=== PATIENT | female | born 1995 | race Caucasian/White ===

== ENCOUNTER 2019-07-10 13:15 | Emergency (ER) | payer OTHER, SELFPAY ==
[2019-07-10 13:18] VITALS: BP 114/66; PULSE 64; RESP 15; TEMP 36.9; O2SAT 100; BMI 22.6
--- NOTE | 2019-07-10 15:02 | DI.US.S_ITS ---
PROCEDURE: US OB <= 14 WEEKS FETUS INDICATIONS: + PREG, VAG BLEEDING, R/O DEMISE/RPOC OUTSIDE/PRIOR DATING DATA: Last menstrual period (LMP): 05/05/19. LMP-based estimated date of delivery (TORREY): 02/09/20. First dating scan (date and location): 07/10/19. Estimated date of delivery (TORREY) from first dating scan: 02/29/20. TECHNIQUE: Real-time scanning was performed of the fetus and maternal pelvic organs, with image documentation. Endovaginal scanning was also performed to better visualize the fetus and maternal ovaries. COMPARISON: None. FINDINGS: Embryo: A single intrauterine gestational sac is identified with a mean gestational sac diameter of 1.9 cm, correlating with an estimated gestational age of 6 weeks 6 days. The crown-rump length is well-visualized that measures 4 mm in length, correlating with an estimated gestational age of 6 weeks 1 day. A prominent yolk sac is present measuring up to 1 cm. cardiac motion was not able to be detected. No definite subchorionic hemorrhage is appreciated. Maternal organs: Ovaries are not enlarged. Limited images through the kidneys demonstrate no hydronephrosis. IMPRESSION: 1. Single intrauterine at at least 6 weeks 1 day (TORREY 02/29/20) is discordant with the clinical dates by approximately 3-4 weeks. 2. cardiac motion was unable to be detected, which is unusual by endovaginal imaging at this age, suspicious for embryonic demise. Correlation with serial beta-hCG levels is recommended. Followup imaging in one week would be helpful to reevaluate for cardiac motion. 2. Enlarged yolk sac. Dictated by: Trevin Stevenson M.D. on 07/10/2019 at 16:05 Approved by: Trevin Stevenson M.D. on 07/10/2019 at 16:08
--- NOTE | 2019-07-10 15:05 | ED_ITS ---
HPI - <TREVON Lucio - Last Filed: 07/10/19 21:53> General Chief complaint: OB/Uterine Contractions Stated complaint: possible miscarriage Time Seen by Provider: 07/10/19 14:29 Source: patient Mode of arrival: Ambulatory Limitations: no limitations History of Present Illness HPI Narrative: 24yo female presents to the emergency department for increased bleeding uterine cramping, and passage of clots that worsened today. She states she was seen 4 days ago the [facility] and was diagnosed with an impending miscarriage for which she presented to receive care for vaginal bleeding. Patient had ultrasound that identified no heart rate at 6 weeks 1day. Patient states she had continued bleeding after the ultrasound but reports that has significantly increased today. She reports increased cramping at a 8/10 with a reduction in pain after ibuprofen. She denies any other symptoms such as dysuria, dizziness, nausea, vomiting, diarrhea, chest pain, shortness of breath, or other concerns. Patient : Yes Related Data Allergies Allergy/AdvReac Type Severity Reaction Status Date / Time No Known Drug Allergies Allergy Verified 07/10/19 13:18 Review of Systems <TREVON Lucio - Last Filed: 07/10/19 21:53> Review of Systems Narrative: REVIEW OF SYSTEMS: GENERAL: Denies fever, chills, malaise, or wt. loss. HENT: No head trauma, sore throat, or dysphagia. EYES: No loss of vision, double vision, eye pain, or irritation. CARDIOVASCULAR: No chest pain, palpitations, or orthopnea. RESPIRATORY: No shortness of breath or cough. GASTROINTESTINAL: Denies abdominal pain. GENITOURINARY: Reports vaginal bleeding and lower pelvic cramping, see HPI. MUSCULOSKELETAL: No pain, weakness, or trauma. INTEGUMENTARY: No rash, lesions, or pruritus. NEURO: No numbness, tingling, memory loss, confusion, or headaches. PSYCH: No behavior or mood changes. PMFSH - <TREVON Lucio - Last Filed: 07/10/19 21:53> Past Medical History Medical history: Reports no medical history Patient : Yes Family History Family history: Reports no significant family history Exam <TREVON Lucio - Last Filed: 07/10/19 21:53> Initial Vital Signs Initial Vital Signs: Vital Signs Temperature 98.4 F 07/10/19 13:18 Pulse Rate 64 07/10/19 13:18 Respiratory Rate 15 07/10/19 13:18 Blood Pressure 114/66 07/10/19 13:18 Pulse Oximetry 100 07/10/19 13:18 PHYSICAL EXAMINATION: GENERAL: Well groomed, alert, and cooperative. Answers questions promptly and appropriately. Vital signs noted. HENT: Normocephalic, atraumatic. Hearing intact. Oral mucosa is pink and moist. EYES: Conjunctiva pink, sclera white, no periorbital swelling. CARDIOVASCULAR: S1 and S2 sounds normal. Regular rate and rhythm, no murmurs, clicks, or bruits. No pedal edema. RESPIRATORY: Normal respiratory rate, trachea midline, airway patent. No stridor, nasal flaring or accessory muscle use. Lungs are clear in all vill[place] without wheeze, rhonchi, or crackles. GASTROINTESTINAL: Bowel sounds normoactive. Abdomen is soft and [non-tender]. No organomegaly, no palpable masses. GENITALURINARY: No flank tenderness. MUSCULOSKELETAL: Normal gait and coordination. Equal tone and mass bilaterally. EXTREMITIES: CMS intact, no pedal edema. SKIN: Warm, dry, soft, appropriate color for ethnicity. No lesions, rashes, or wounds to visualized areas. NEURO: Alert and Oriented X 3. Good coordination. No ataxia, or sensory deficits, or cognitive issues. PSYCH: Appropriate affect and mood. <Desmond Pedersen MD - Last Filed: 07/11/19 07:44> Initial Vital Signs Initial Vital Signs: Vital Signs Temperature 98.4 F 07/10/19 13:18 Pulse Rate 64 07/10/19 13:18 Respiratory Rate 15 07/10/19 13:18 Blood Pressure 114/66 07/10/19 13:18 Pulse Oximetry 100 07/10/19 13:18 Course <TREVON Lucio - Last Filed: 07/10/19 21:53> Course Course Narrative: Patient had record with her from 07/07/2019: RBC: 4.39 HGB: 13.2 HCT: 38.5 BHC,260 Type and cross: O+ OB ultrasound Report: pole measures 4.8 mm, without heart rate. Follow-up was required to determine viability. demise is not excluded. Orders Ordered: Discontinued Medications Ketorolac Tromethamine (Toradol) 30 mg IM NOW ONE Stop: 07/10/19 15:07 Last Admin: 07/10/19 15:21 Dose: 30 mg Documented by: SHAGGY Consultations Consultation #1: Patient staffed with Dr. Pedersen Vital Signs Vital signs: Vital Signs - 8 hr 07/10/19 16:23 Pulse Rate 67 Respiratory Rate 18 Blood Pressure [Right Arm] 111/57 L Pulse Oximetry 100 <Desmond Pedersen MD - Last Filed: 07/11/19 07:44> Orders Ordered: Discontinued Medications Ketorolac Tromethamine (Toradol) 30 mg IM NOW ONE Stop: 07/10/19 15:07 Last Admin: 07/10/19 15:21 Dose: 30 mg Documented by: SHAGGY Vital Signs Vital signs: Vital Signs - 8 hr 07/10/19 16:23 Pulse Rate 67 Respiratory Rate 18 Blood Pressure [Right Arm] 111/57 L Pulse Oximetry 100 MDM - OB/Uterine Contractions <TREVON Lucio - Last Filed: 07/10/19 21:53> Medical Records Attestation: I reviewed the patient's medical records. Lab Data Attestation: I reviewed the patient's lab results. Result diagrams: 07/10/19 16:07 Labs: Lab Results 07/10/19 07/10/19 Range/Units 16:07 16:07 WBC 6.8 (4.5-11.0) X10^3/uL RBC 4.16 (4.0-5.2) X10^6/uL Hgb 12.3 (12.0-16.0) g/dL Hct 36.4 (36-46) % MCV 87.3 (80-100) fL MCH 29.6 (26-34) PG MCHC 33.9 (30-36) % RDW 12.2 (11.6-14.8) % Plt Count 280 (150-400) X10^3/uL Neut % (Auto) 65.3 (50-75) % Lymph % (Auto) 25.9 (25-40) % [place] % (Auto) 6.1 (3-14) % Eos % (Auto) 2.1 (2-4) % Baso % (Auto) 0.6 (0-2) % Neut # (Auto) 4500 (5712-5171) /uL Lymph # (Auto) 1800 (1885-3772) /uL [place] # (Auto) 400 (0-900) /uL Eos # (Auto) 100 (0-450) /uL Baso # (Auto) 0 (0-100) /uL HCG, Quant 20697 mIU/mL Imaging Data US - OB: Radiologist's Impression: [address] [address] Ultrasound Report Signed Patient: Juana Quesada EMR#: [id number] : 1995Acct:[id number] Age/Sex: 24 / FDate of Service: 07/10/19 Loc: ED Accession Number: [id number] Procedure: US OB <= 14 weeks fetus Ordering Provider: Lauren Ca PROCEDURE: US OB <= 14 WEEKS FETUS INDICATIONS: + PREG, VAG BLEEDING, R/O DEMISE/RPOC OUTSIDE/PRIOR DATING DATA: Last menstrual period (LMP): 05/05/19. LMP-based estimated date of delivery (TORREY): 02/09/20. First dating scan (date and location): 07/10/19. Estimated date of delivery (TORREY) from first dating scan: 02/29/20. TECHNIQUE: Real-time scanning was performed of the fetus and maternal pelvic organs, with image documentation. Endovaginal scanning was also performed to better visualize the fetus and maternal ovaries. COMPARISON: None. FINDINGS: Embryo: A single intrauterine gestational sac is identified with a mean gestational sac diameter of 1.9 cm, correlating with an estimated gestational age of 6 weeks 6 days. The crown-rump length is well-visualized that measures 4 mm in length, correlating with an estimated gestational age of 6 weeks 1 day. A prominent yolk sac is present measuring up to 1 cm. cardiac motion was not able to be detected. No definite subchorionic hemorrhage is appreciated. Maternal organs: Ovaries are not enlarged. Limited images through the kidneys demonstrate no hydronephrosis. IMPRESSION: 1. Single intrauterine at at least 6 weeks 1 day (TORREY 02/29/20) is discordant with the clinical dates by approximately 3-4 weeks. 2. cardiac motion was unable to be detected, which is unusual by endov aginal imaging at this age, suspicious for embryonic demise. Correlation with serial beta-hCG levels is recommended. Followup imaging in one week would be helpful to reevaluate for cardiac motion. 2. Enlarged yolk sac. Dictated by: Trevin Stevenson M.D. on 07/10/2019 at 16:05 Approved by: Trevin Stevenson M.D. on 07/10/2019 at 16:08 [facility] Narrative Medical decision making narrative: 24-year-old female with a history of impending miscarriage presents emergency department for increased bleeding and clotting. Ultrasound shows no heart bee with a single intrauterine at approximately 6 weeks. Patient's hCG has declined, and patient's bleeding has increased. Suspect this is most likely due to spontaneous . Patient was encouraged to follow up with OB within the week to discuss further options on how to handle miscarriage and for continue monitoring. She was referred to Ob upon discharge. Less concern for acute blood loss due to hemoglobin, hematocrit, and red blood cells without much acute change. She remained hemodynamically stable throughout the emergency department stay. She agreed to plan of care verbalized understanding. Pain was controlled with Toradol. <Desmond Pedersen MD - Last Filed: 07/11/19 07:44> Lab Data Labs: Lab Results 07/10/19 07/10/19 Range/Units 16:07 16:07 WBC 6.8 (4.5-11.0) X10^3/uL RBC 4.16 (4.0-5.2) X10^6/uL Hgb 12.3 (12.0-16.0) g/dL Hct 36.4 (36-46) % MCV 87.3 (80-100) fL MCH 29.6 (26-34) PG MCHC 33.9 (30-36) % RDW 12.2 (11.6-14.8) % Plt Count 280 (150-400) X10^3/uL Neut % (Auto) 65.3 (50-75) % Lymph % (Auto) 25.9 (25-40) % [place] % (Auto) 6.1 (3-14) % Eos % (Auto) 2.1 (2-4) % Baso % (Auto) 0.6 (0-2) % Neut # (Auto) 4500 (1754-2615) /uL Lymph # (Auto) 1800 (6338-0180) /uL [place] # (Auto) 400 (0-900) /uL Eos # (Auto) 100 (0-450) /uL Baso # (Auto) 0 (0-100) /uL HCG, Quant 04584 mIU/mL Discharge Plan Departure Patient Disposition: Home Clinical Impression: Incomplete miscarriage Discharge Date/Time: 07/10/19 17:54 Instructions: DI for Miscarriage Activity Restrictions/Additional Instructions: Thank you for entrusting me with your care today. As discussed, your ultrasound shows that the embryo is still within the uterus, there is no heart beat, and your HCG ( hormone) is declining, this indicates that you are most likely having a miscarriage. I have referred to to an OB listed below, please give them a call and schedule a follow-up appointment. I recommend having a re- evaluation with possible ultrasound in 1 week. Return emergency department for any new or worsening symptoms such as dizziness, shortness of breath, severe cramping, profuse bleeding (saturating more than 1 pad or tampon an hour), syncope, or other concerns. Referrals: Kristen Pelaez MD [Physician] - (Miscarriage. )
[2019-07-10] MEDS: KETOROLAC 60 MG/2 ML VIAL 30 MG IM (15:21)
[2019-07-10 16:14] LABS: Add Manual Diff / Slide Review NO; Basophils Absolute Auto 0 /uL (0-100); Basophils Percent Auto 0.6 % (0-2); Eosinophils Absolute Auto 100 /uL (0-450); Eosinophils Percent Auto 2.1 % (2-4); Hematocrit 36.4 % (36-46); Hemoglobin 12.3 g/dL (12.0-16.0); Lymphocytes Absolute Auto 1800 /uL (1100-4500); Lymphocytes Percent Auto 25.9 % (25-40); Mean Corpuscular HGB Conc 33.9 % (30-36); Mean Corpuscular Hemoglobin 29.6 PG (26-34); Mean Corpuscular Volume 87.3 fL (80-100); Monocytes Absolute Auto 400 /uL (0-900); Monocytes Percent Auto 6.1 % (3-14); Neutrophils Absolute Auto 4500 /uL (1500-7000); Neutrophils Percent Auto 65.3 % (50-75); Platelet Count 280 X10^3/uL (150-400); Red Blood Cell Count 4.16 X10^6/uL (4.0-5.2); Red Cell Distribution Width 12.2 % (11.6-14.8); White Blood Cell Count 6.8 X10^3/uL (4.5-11.0)
--- NOTE | 2019-07-10 16:21 | PC.NURSE ---
pt reporst, had vaginal bleeding, 3 days ago, denies fever,nausea,vomiting. returned from u/s, report had a large vaginal clot, states,today changed pad twice. denies fever,nausea or vomiting. alert and awake, skin warm dry pink, nad pain free at this time, after toradol. waiting for u/s result.
[2019-07-10 16:23] VITALS: BP 111/57; PULSE 67; RESP 18; O2SAT 100
[2019-07-10 16:50] LABS: HCG Quantitative /Beta subunit 13596 mIU/mL
== END 2019-07-10 17:54 | disposition home or self-care (01) ==
PROVIDERS: Emergency Provider Nurse Practitioner
DX: O03.4 Incomplete spontaneous abortion without complication (principal)
CPT/HCPCS: 36415; 76801; 76830; 84702; 85025; 96372; 99284; J1885

== ENCOUNTER 2019-07-12 05:57 | Observation (INO) | payer OTHER, SELFPAY ==
[2019-07-12] VITALS (7 sets, daily range): BP systolic 102–130; BP diastolic 48–67; PULSE 63–88; RESP 11–20; TEMP 36.5–36.8; O2SAT 100
--- NOTE | 2019-07-12 | PATH_ITS ---
[facility] Accession Number: [id number] . 01 Material submitted: . uterus - UTERINE CONTENTS . 01 Clinical history: . MISCARRYING UNDER 20 WEEKS . 02 Diagnosis: Uterine Contents: Products of conception identified. V 07/15/2019 1231 Local . 02 Electronically signed: . Rufina Moore MD, Pathologist NPI- [id number] . 01 Gross description: . UTERINE CONTENTS: Received in formalin are multiple fragments of hemorrhagic spongy tissue measuring 6.0 x 4.0 x 1.2 cm in aggregate. parts are not identified. Specimen is submitted in toto in 7 cassettes. /[facility] 07/14/2019 1911 Local . 02 Pathologist provided ICD-10: O03.4 . 02 CPT . 347276 Performed at: 01 [facility] [address] [id number] MD Meir Young MD Phone: [phone] Performed at: 02 [facility] [place] [address] [place] [id number] MD Jessica Farooq MD Phone: [phone]
--- NOTE | 2019-07-12 06:17 | DI.US.S_ITS ---
PROCEDURE: US OB <= 14 WEEKS FETUS INDICATIONS: HEAVY BLEEDING OUTSIDE/PRIOR DATING DATA: Last menstrual period (LMP): 05/05/19. LMP-based estimated date of delivery (TORREY): 02/09/20. First dating scan (date and location): 07/10/19. Estimated date of delivery (TORREY) from first dating scan: 02/29/20. TECHNIQUE: Real-time scanning was performed of the fetus and maternal pelvic organs, with image documentation. Endovaginal scanning was also performed to better visualize the fetus and maternal ovaries. COMPARISON: None. FINDINGS: Embryo: An intrauterine gestational sac is seen. The previously seen pole is no longer seen. There is apparent hemorrhage seen within the previously seen yolk sac that measures 3 by 1 by 1.2 cm. The mean gestational sac diameter is 2.1 cm which corresponds to a gestational age of 7 weeks Measurement variability in dating: +/- 4 weeks by LMP, +/- 7 days by mean sac diameter (use before 6 weeks gestation if crown-rump length not able to be measured), +/- 5 days by crown-rump length (up to 8 weeks 6 days gestation), +/- 7 days by crown-rump length (up to 13 weeks 6 days gestation). Maternal organs: No adnexal masses are seen. The ovaries are not directly visualized. Limited images through the kidneys demonstrate no hydronephrosis. IMPRESSION: These imaging findings are most compatible with a spontaneous miscarriage in progress, with the previously seen pole no longer seen. Apparent hemorrhage can be seen within the gestational sac, replacing the yolk sac. Close clinical followup, with serial beta-hCG and serial ultrasound are recommended, as clinically appropriate. Dictated by: Reymundo Carbone M.D. on 07/12/2019 at 7:05 Approved by: Reymundo Carbone M.D. on 07/12/2019 at 7:09
[2019-07-12] MEDS: KETOROLAC 60 MG/2 ML VIAL 15 MG IV (06:25)
[2019-07-12 06:30] LABS: Hematocrit 34.7 % (36-46); Hemoglobin 11.9 g/dL (12.0-16.0)
--- NOTE | 2019-07-12 06:47 | ED_ITS ---
HPI - <Landen Sheppard DO - Last Filed: 07/13/19 05:53> General Chief complaint: OB/Uterine Contractions Stated complaint: miscarrying under 20 weeks Time Seen by Provider: 07/12/19 06:00 Source: patient Mode of arrival: Ambulatory Limitations: no limitations History of Present Illness HPI Narrative: 24-year-old female nonsmoker at 6 weeks has been having signs and symptoms consistent with threatened miscarriage for about the past 5 days. Her OB management had been in [place] where her and her were station. There evaluated for cramping and some bleeding at a [place] hospital on Sunday, she was found to have HCG of 23,000 and discussions were had regarding the possibility of threatened miscarriage. She then came to [place] and symptoms persisted, she was seen here on Sunday under similar circumstances, with persistent cramping and bleeding. Ultrasound noted IUP at 6 weeks 1 day with no obvious heart tones and discussion was had regarding demise. HCG was 13,000. She had elected to ?allow nature to take its course? but over the course of the night her cramps have become much more intense. She is saturating a pad every 3 hours or so. She denies any nausea or vomiting. She is not dizzy nor weak or lightheaded. She denies any fever or chills. Her last oral intake was about 5:00 a.m. Complaint: vaginal bleeding Onset (ago): hour(s) Pain Consistency: constant Location: pelvis Severity: severe Quality: Aching and Cramping Relieving factors: none Exacerbating factors: none Associated symptoms: denies other symptoms Related Data Previous Rx's Medication Instructions Recorded hydrocodone-acetaminophen 1 tab PO Q4-6H PRN #10 tab 07/12/19 Allergies Allergy/AdvReac Type Severity Reaction Status Date / Time No Known Drug Allergies Allergy Verified 07/10/19 13:18 Review of Systems <Landen Sheppard DO - Last Filed: 07/13/19 05:53> Constitutional Constitutional: Denies chills, Denies fatigue, Denies fever(s), Denies frequent falls, Denies lethargy and Denies weakness Eyes Eyes: Denies change in vision, Denies eye discharge, Denies irritation and Denies loss of vision ENT Ears, Nose, Mouth, and Throat: Denies change in voice, Denies dizziness, Denies neck pain, Denies sore throat and Denies throat swelling Cardiovascular Cardiovascular: Denies chest pain, Denies irregular heart rhythm, Denies light headedness, Denies palpitations, Denies dyspnea, Denies dyspnea on exertion and Denies orthopnea Respiratory Respiratory: Denies cough, Denies dyspnea, Denies dyspnea on exertion and Denies wheezing Gastrointestinal Gastrointestinal: Denies abdominal pain, Denies change in bowel habits, Denies diarrhea, Denies nausea and Denies vomiting Genitourinary Genitourinary: Reports abnormal vaginal bleeding, Denies hematuria, Reports pelvic pain, Denies flank pain, Denies urinary incontinence and Denies urinary urgency Musculoskeletal Musculoskeletal: Denies back pain, Denies muscle weakness, Denies neck pain, Denies numbness and Denies tingling Integumentary/Breasts Skin/Breast: Denies pruritus, Denies erythema, Denies rash and Denies wounds Neurologic Neurologic: Denies behavioral changes, Denies confusion, Denies dizziness, Denies frequent falls, Denies loss of vision, Denies numbness, Denies tingling and Denies weakness Psychiatric Psychiatric: Denies anxiety, Denies behavioral changes, Denies confusion, Denies depression, Denies homicidal ideation and Denies suicidal ideation Endocrine Endocrine: Denies fatigue, Denies flushing and Denies palpitations Hematologic/Lymphatic Hematologic/Lymphatic: Denies easy bruising Allergic/Immunologic Allergic/Immunologic: Denies urticaria, Denies throat swelling and Denies wheezing PMFSH - <Landen Sheppard, - Last Filed: 07/13/19 05:53> Past Medical History Medical history: Reports no medical history Family History Family history: Reports no significant family history Exam <Landen Sheppard, - Last Filed: 07/13/19 05:53> Narrative Exam Narrative: GEN: AOx3 and in mild distress EYES: Pupils are equal, round, and reactive to light and accommodation. Extr aoccular muscles are intact bilaterally. There is no subconjunctival hemorrhage or exudate. CHEST: Lungs are clear to auscultation bilaterally and free of wheezes, rales, or rhonchi. Heart rate is regular rhythm, there are no murmurs, clicks, rubs, or gallops. There is no chest wall tenderness. ABD: Abdomen is soft and mild lower abdominal tenderness. There is no guarding or rebound. Bowel sounds are normal in all 4 quadrants. There is no mass or organomegaly. EXT: Full painless ROM of all extremities with no loss of sensation or strength. SKIN: Warm, pink, and dry. No erythema or rash Initial Vital Signs Initial Vital Signs: Vital Signs Temperature 98.2 F 07/12/19 06:04 Pulse Rate 88 07/12/19 06:04 Respiratory Rate 07/12/19 06:04 Blood Pressure 130/60 07/12/19 06:04 Pulse Oximetry 100 07/12/19 06:04 <Desmond Pedersen MD - Last Filed: 07/13/19 23:21> Initial Vital Signs Initial Vital Signs: Vital Signs Temperature 98.2 F 07/12/19 06:04 Pulse Rate 88 07/12/19 06:04 Respiratory Rate 07/12/19 06:04 Blood Pressure 130/60 07/12/19 06:04 Pulse Oximetry 100 07/12/19 06:04 Course <Landen Sheppard DO - Last Filed: 07/13/19 05:53> Orders Ordered: Discontinued Medications Fentanyl (Sublimaze) 0 mcg IV Q5M PRN PRN Reason: Pain, Moderate (4-6) Last Admin: 07/12/19 09:38 Dose: 50 mcg Documented by: MAJOR Hydromorphone HCl (Dilaudid) 0 mg IV Q5MIN PRN PRN Reason: Pain, Mild (1-3) Lactated Ringer's (Lactated Ringers) 1,000 mls @ 100 mls/hr IV CONT LIZ Cefazolin Sodium/Dextrose (Ancef) 2 gm in 100 mls @ 200 mls/hr IV NOW ONE Stop: 07/12/19 08:39 Last Infusion: 07/12/19 09:20 Dose: 0 mls/hr Documented by: Admin: 07/12/19 09:02 Dose: 200 mls/hr Documented by: JAYSON Lactated Ringer's (Lactated Ringers) 1,000 mls @ 42 mls/hr IV CONT LIZ Last Infusion: 07/12/19 10:17 Dose: 0 mls/hr Documented by: Admin: 07/12/19 09:00 Dose: 42 mls/hr Documented by: MAJOR Ketorolac Tromethamine (Toradol) 15 mg IV NOW ONE Stop: 07/12/19 06:18 Last Admin: 07/12/19 06:25 Dose: 15 mg Documented by: JULIETA Ondansetron HCl (Zofran) 4 mg IV NOW PRN PRN Reason: Nausea And Vomiting Oxycodone/Acetaminophen (Percocet 5/325) 1 tab PO PACUNOW PRN PRN Reason: Mild or Moderate Pain Last Admin: 07/12/19 09:52 Dose: 1 tab Documented by: MAJOR Vital Signs Vital signs: Vital Signs - 8 hr 07/12/19 06:04 Temperature 98.2 F Pulse Rate 88 Respiratory Rate 20 Blood Pressure 130/60 Pulse Oximetry 100 <Desmond Pedersen MD - Last Filed: 07/13/19 23:21> Orders Ordered: Discontinued Medications Fentanyl (Sublimaze) 0 mcg IV Q5M PRN PRN Reason: Pain, Moderate (4-6) Last Admin: 07/12/19 09:38 Dose: 50 mcg Documented by: MAJOR Hydromorphone HCl (Dilaudid) 0 mg IV Q5MIN PRN PRN Reason: Pain, Mild (1-3) Lactated Ringer's (Lactated Ringers) 1,000 mls @ 100 mls/hr IV CONT LIZ Cefazolin Sodium/Dextrose (Ancef) 2 gm in 100 mls @ 200 mls/hr IV NOW ONE Stop: 07/12/19 08:39 Last Infusion: 07/12/19 09:20 Dose: 0 mls/hr Documented by: Admin: 07/12/19 09:02 Dose: 200 mls/hr Documented by: JAYSON Lactated Ringer's (Lactated Ringers) 1,000 mls @ 42 mls/hr IV CONT LIZ Last Infusion: 07/12/19 10:17 Dose: 0 mls/hr Documented by: Admin: 07/12/19 09:00 Dose: 42 mls/hr Documented by: MAJOR Ketorolac Tromethamine (Toradol) 15 mg IV NOW ONE Stop: 07/12/19 06:18 Last Admin: 07/12/19 06:25 Dose: 15 mg Documented by: JULIETA Ondansetron HCl (Zofran) 4 mg IV NOW PRN PRN Reason: Nausea And Vomiting Oxycodone/Acetaminophen (Percocet 5/325) 1 tab PO PACUNOW PRN PRN Reason: Mild or Moderate Pain Last Admin: 07/12/19 09:52 Dose: 1 tab Documented by: MAJOR Vital Signs Vital signs: Vital Signs - 8 hr 07/12/19 06:04 Temperature 98.2 F Pulse Rate 88 Respiratory Rate 20 Blood Pressure 130/60 Pulse Oximetry 100 MDM - OB/Uterine Contractions <Landen Sheppard DO - Last Filed: 07/13/19 05:53> Lab Data Result diagrams: 07/12/19 06:20 Labs: Lab Results 07/12/19 07/12/19 Range/Units 06:20 06:20 Hgb 11.9 L (12.0-16.0) g/dL Hct 34.7 L (36-46) % HCG, Quant 7532.1 mIU/mL Imaging Data US - abdomen: Radiologist's Impression: Chart Viewer Diagnostics DATE TYPE STATUS AUTHOR Hx 07/12/19 06:17 Reymundo Carbone 07/10/19 15:02 Trevin StevensonClare maynardheide Maher 24, F106/05/1994 [place] [id number] 1 58.513kg Search Chart No Data to Display ONSET 07/12/19 09:59 Clare Quesadaheide Maher 24 F 1995 [place] [address] Ultrasound Report Signed Patient: Juana Quesada EMR#: [id number] : 1995Acct:[id number] Age/Sex: 24 / FDate of Service: 07/12/19 Loc: [id number] Accession Number: [id number] Procedure: US OB <= 14 weeks fetus Ordering Provider: Landen Sheppard D.O. PROCEDURE: US OB <= 14 WEEKS FETUS INDICATIONS: HEAVY BLEEDING OUTSIDE/PRIOR DATING DATA: Last menstrual period (LMP): 05/05/19. LMP-based estimated date of delivery (TORREY): 02/09/20. First dating scan (date and location): 07/10/19. Estimated date of delivery (TORREY) from first dating scan: 02/29/20. TECHNIQUE: Real-time scanning was performed of the fetus and maternal pelvic organs, with image documentation. Endovaginal scanning was also performed to better visualize the fetus and maternal ovaries. COMPARISON: None. FINDINGS: Embryo: An intrauterine gestational sac is seen. The previously seen pole is no longer seen. There is apparent hemorrhage seen within the previously seen yolk sac that measures 3 by 1 by 1.2 cm. The mean gestational sac diameter is 2.1 cm which corresponds to a gestational age of 7 weeks Measurement variability in dating: +/- 4 weeks by LMP, +/- 7 days by mean sac diameter (use before 6 weeks gestation if crown-rump length not able to be measured), +/- 5 days by crown-rump length (up to 8 weeks 6 days gestation), +/- 7 days by crown-rump length (up to 13 weeks 6 days gestation). Maternal organs: No adnexal masses are seen. The ovaries are not directly visualized. Limited images through the kidneys demonstrate no hydronephrosis. IMPRESSION: These imaging findings are most compatible with a spontaneous miscarriage in progress, with the previously seen pole no longer seen. Apparent hemorrhage can be seen within the gestational sac, replacing the yolk sac. Close clinical followup, with serial beta-hCG and serial ultrasound are recommended, as clinically appropriate. Dictated by: Reymundo Carbone M.D. on 07/12/2019 at 7:05 Approved by: Reymundo Carbone M.D. on 07/12/2019 at 7:09 [facility] Narrative Medical decision making narrative: Patient states that she cannot handle dealing with this miscarriage on her own anymore and wishes for assistance from Ob and wants to do a D&C if they will take her. After placing a call to Dr. Gonzalez she is happy to come and visit the patient at the bedside for likely D&C <Desmond Pedersen MD - Last Filed: 07/13/19 23:21> Lab Data Labs: Lab Results 07/12/19 07/12/19 Range/Units 06:20 06:20 Hgb 11.9 L (12.0-16.0) g/dL Hct 34.7 L (36-46) % HCG, Quant 7532.1 mIU/mL Discharge Plan Departure Patient Disposition: Admitted as Observation Clinical Impression: Incomplete miscarriage Discharge Date/Time: 07/12/19 08:45 Referrals: Padma Gonzalez MD [Physician] - 2 Weeks Admit Date/Time: 07/12/19 07:57 Admit Provider: Padma Gonzalez
[2019-07-12 06:55] LABS: HCG Quantitative /Beta subunit 7532.1 mIU/mL
--- NOTE | 2019-07-12 08:02 | P.HPOB_ITS ---
History of Present Illness History of Present Illness Reason for admission: incomplete Narrative: Juana Quesada is a 24 year old female with incomplete requesting D&C [facility] Surgical History (Updated 07/12/19 @ 08:03 by Padma Gonzalez MD) [place] teeth removed (Acute) Social History Smoking Status: Unknown if ever smoked Meds Home Medications and Allergies Allergies Allergy/AdvReac Type Severity Reaction Status Date / Time No Known Drug Allergies Allergy Verified 07/10/19 13:18 Review of Systems Review of Systems Narrative: Patient denies fevers. She began bleeding 4 days ago. She has con tinued to have cramping and bleeding. She has been having some increasing abdominal pain. No nausea or vomiting. ROS: Yes All systems reviewed with the patient and are negative except as otherwise documented Exam Vital Signs (past 8 hours): - 07/12/19 06:04 07/12/19 07:32 Temperature 98.2 F Pulse Rate 88 65 Respiratory Rate 20 18 Blood Pressure 130/60 Blood Pressure [Right Arm] 106/54 L Pulse Oximetry 100 100 Oxygen Delivery Method Room Air Narrative Exam Narrative: Patient's HEENT exam within normal limits. Lungs are clear to auscultation percussion. No thyromegaly. Heart is regular rate and rhythm no S3-S4 or murmurs. Abdomen is soft with mild diffuse tenderness but no rebound. Pelvic exam was not repeated. Extremities without edema and nontender. In reviewing ultrasound performed today there is still a nonviable gestation in the uterus. Objective Labs Result Diagrams: 07/12/19 06:20 Labs: Laboratory Results - last 24 hr 07/12/19 07/12/19 06:20 06:20 Hgb 11.9 L Hct 34.7 L HCG, Quant 7532.1 Assessment & Plan Assessment and plan (1) Incomplete miscarriage: Current visit: Yes Status: Acute Assessment & Plan narrative: Incomplete miscarriage at 6 weeks with patient requesting D&C. Consent form was reviewed with the patient and signed. Ques tions answered. Risk of infection, perforation of the uterus that could require additional surgery or opening the abdomen to repair damage to bowel, bladder, ureters. Risk of bleeding to enough to require transfusion. Incomplete removal of all tissue that could require further surgery in the future. Risk of scar tissue in the uterus that could cause problems with infertility or at require additional surgery Time Spent With Patient Time with patient: 15-24 minutes
--- NOTE | 2019-07-12 08:02 | PM.PREOP ---
Pre-operative Note Interval Note History & Physical reviewed/Exam performed by Physician: Yes Changes to H&P: No
[2019-07-12] MEDS: LACTATED RINGERS 1,000 ML 42 ML IV (09:00)
[2019-07-12] MEDS: CEFAZOLIN 2 GM/100 ML FROZ.PIGGY IV (09:02)
--- NOTE | 2019-07-12 09:17 | SUR.OPER ---
Lithotomy on padded OR bed, head on pillow, arms secured on padded arm boards at <90 degrees abduction. Legs secured in padded yellow fins stirrups.
--- NOTE | 2019-07-12 09:25 | PM.OP.1 ---
Operative Date/Time/Diagnoses Date of procedure: 07/12/19 Time of procedure: 09:26 Pre-op diagnosis: Missed AB Post-op diagnosis: same Procedure & Clinicians Procedure: Suction D&C Same procedure as scheduled: Yes Indications: Incomplete miscarriage at 6 weeks Surgeon: Padma Gonzalez Click Yes if Unassisted: Yes Anesthesia Type: General Operative Notes Closure Type: not applicable Specimen(s): other (Uterine contents) Estimated Blood Loss (mL): 20 Blood products transfused: none Procedure in detail: Patient was brought to the operating room where she underwent general anesthesia. She was placed in low Yellofin stirrups and prepped and draped in the usual sterile fashion. 2 g of Ancef were in prior to beginning of the case. A check system was reviewed with the staff in the room. A single-tooth tenacula was placed on the anterior lip of the cervix and the cervix was dilated to a #8 Hegar dilator. The #7 suction curette was placed to the fundus and a moderate amount of tissue removed. A sharp Curet was placed and curettage if performed to make sure that all tissue was removed. The suction catheter was replaced to remove the remaining tissue. Patient went to recovery room in good condition. Counts of instruments and sponges were correct. Complications: none Post-operative Condition: stable Disposition: same day surgery Plan for aftercare: Home when awake and stable
[2019-07-12] MEDS: fentaNYL 100 MCG/2 ML INJ IV (09:38)
[2019-07-12] MEDS: OXYCODONE/ACETAMINOPHEN 5/325 TABLET 1 TAB PO (09:52)
--- NOTE | 2019-07-12 10:02 | SUR.PHASEI ---
oakes ring with white stones, necklace, nose stud and multiple earring studs in place.
== END 2019-07-12 10:05 | disposition home or self-care (01) ==
LOC: ED 07:24 → AC 07:59
PROVIDERS: Admitting Provider Specialist; Emergency Provider Emergency Medicine; Referring Provider Emergency Medicine; Visit Provider Specialist
PROC: (CPT 58120; principal; 2019-07-12 08:50)
DX: O02.1 Missed abortion (principal); Z3A.01 Less than 8 weeks gestation of pregnancy
CPT/HCPCS: 59820; 36415; 76801; 76817; 84702; 85014; 85018; 96361; 96374; 96375; 99284; G0378; J0690; J1100; J1885; J2250; J2405; J2704; J3010

== ENCOUNTER 2019-10-09 19:50 | Emergency (ER) | payer OTHER, SELFPAY ==
[2019-10-09 19:59] VITALS: BP 129/68; PULSE 79; RESP 15; TEMP 36.8; O2SAT 99; BMI 22.1
--- NOTE | 2019-10-09 20:00 | ED_ITS ---
HPI - Female Genitourinary General Chief complaint: OB/Uterine Contractions Stated complaint: thinks having a miscarriage Time Seen by Provider: 10/09/19 20:00 History of Present Illness HPI Narrative: 24-year-old , O+, at 9 weeks 1 day by ultrasound 2 weeks ago. Presents with bleeding that started at 3:00 p.m. this afternoon. Was initially significant cramping than brown spotting than more cramping and eventually bright red bleeding without significant clotting. She describes no fevers, no dysuria, no abdominal pain beyond the pelvic cramping, no diarrhea, no cough, no chest pain, no shortness of breath. Presented to this emergency department July 10 with a 6 week spontaneous miscarriage that required D&C at that time. Related Data Previous Rx's Medication Instructions Recorded hydrocodone-acetaminophen 1 tab PO Q4-6H PRN #10 tab 07/12/19 Allergies Allergy/AdvReac Type Severity Reaction Status Date / Time No Known Drug Allergies Allergy Verified 07/10/19 13:18 Review of Systems Review of Systems Narrative: Pertinent positive and negative findings as per HPI Remainder of review of systems is otherwise unremarkable for Constitutional: Fevers, chills, weakness ENT: No sore throat, neck pain, ear pain CV: Chest pain, palpitations, dyspnea on exertion Respiratory: Cough, wheeze, dyspnea GI: Nausea, vomiting, diarrhea, change in bowel habits, black or bloody stools : Dysuria, hematuria, flank pain MS: Muscle weakness, numbness, joint swelling or warmth Skin: Rashes, nonhealing lesions Neuro: Syncope, dizziness, tingling Patient History Medical History (Updated 10/09/19 @ 21:35 by Fay Valderrama MD) Incomplete miscarriage (Acute) Surgical History (Updated 07/12/19 @ 08:03 by Padma Gonzalez MD) [place] teeth removed (Acute) alcohol intake frequency: holidays/special occasions only Substance Use Type: does not use Exam Narrative Exam Narrative: General: Alert appropriate in no acute distress Respiratory: Able to speak in full sentences, no obvious respiratory distress Skin: No obvious rashes, warm and dry Neurologic: Grossly intact no obvious asymmetries or abnormalities Psych, appropriate insight and affect, cooperative Pelvic: Long closed uterus with some mucousy discharge from the os. Brownish discharge in the vaginal vault no bright red blood Bedside ultrasound: Slightly deformed gestational sac with yolk sac visible but no clear pole. Gestational sac is measuring approximately 7 weeks 1 day Initial Vital Signs Initial Vital Signs: Vital Signs Temperature 98.2 F 10/09/19 19:59 Pulse Rate 79 10/09/19 19:59 Respiratory Rate 15 10/09/19 19:59 Blood Pressure 129/68 10/09/19 19:59 Pulse Oximetry 99 10/09/19 19:59 Course Orders Ordered: ED Orders 10/09/19 20:30 Complete Blood Count AUTO DIFF Stat Comprehensive Metabolic Panel Stat HCG Quantitative /Beta subunit Stat Test Serum,Qual Stat Discontinued Medications Sodium Chloride (Normal Saline 0.9%) 1,000 mls @ 1,000 mls/hr IV BOLUS ONE Stop: 10/09/19 21:28 Last Infusion: 10/09/19 22:13 Dose: 0 mls/hr Documented by: Admin: 10/09/19 20:42 Dose: 1,000 mls/hr Documented by: JULIETA Ketorolac Tromethamine (Toradol) 15 mg IV NOW ONE Stop: 10/09/19 20:30 Last Admin: 10/09/19 20:41 Dose: 15 mg Documented by: JULIETA Oxycodone/Acetaminophen (Percocet 5/325) 1 tab PO NOW ONE Stop: 10/09/19 21:45 Last Admin: 10/09/19 21:49 Dose: 1 tab Documented by: JULIETA Oxycodone/Acetaminophen (Endocet 5/325 Prepack) 1 bottle MISC SEEINSTR ONE Stop: 10/09/19 21:45 Last Admin: 10/09/19 21:49 Dose: 1 bottle Documented by: JULIETA Vital Signs Vital signs: Vital Signs - 8 hr 10/09/19 19:59 Temperature 98.2 F Pulse Rate 79 Respiratory Rate 15 Blood Pressure 129/68 Pulse Oximetry 99 MDM - Female Genitourinary Medical Records Attestation: I reviewed the patient's medical records. Lab Data Attestation: I reviewed the patient's lab results. Lab results narrative: quant [id number] Result diagrams: 10/09/19 20:30 10/09/19 20:30 Labs: Lab Results 10/09/19 10/09/19 10/09/19 Range/Units 20:30 20:30 20:30 WBC 7.3 (4.5-11.0) X10^3/uL RBC 4.25 (4.0-5.2) X10^6/uL Hgb 12.6 (12.0-16.0) g/dL Hct 36.3 (36-46) % MCV 85.4 (80-100) fL MCH 29.7 (26-34) PG MCHC 34.8 (30-36) % RDW 12.0 (11.6-14.8) % Plt Count 277 (150-400) X10^3/uL Neut % (Auto) 59.0 (50-75) % Lymph % (Auto) 31.1 (25-40) % Butts % (Auto) 6.3 (3-14) % Eos % (Auto) 2.6 (2-4) % Baso % (Auto) 1.0 (0-2) % Neut # (Auto) 4300 (6920-0534) /uL Lymph # (Auto) 2300 (5569-7597) /uL Butts # (Auto) 500 (0-900) /uL Eos # (Auto) 200 (0-450) /uL Baso # (Auto) 100 (0-100) /uL Sodium 136 L (137-145) mmol/L Potassium 4.1 (3.4-5.1) mmol/L Chloride 106 (98-107) mmol/L Carbon Dioxide 23 (22-32) mmol/L BUN 20 H (7-17) mg/dL Creatinine 0.72 (0.52-1.04) mg/dL Estimated GFR > 60.0 (>60) mL/min BUN/Creatinine Ratio 27.8 H (6-22) Glucose 98 (70-100) mg/dL Calcium 9.6 (8.4-10.2) mg/dL Total Bilirubin 0.2 (0.2-1.3) mg/dL AST 25 (14-36) IU/L ALT 16 (<35) IU/L Alkaline Phosphatase 55 (38-126) U/L Total Protein 7.3 (6.3-8.2) g/dL Albumin 4.3 (3.5-5.0) g/dL Globulin 3.0 (1.7-4.1) g/dL Albumin/Globulin Ratio 1.4 (1.0-2.8) HCG, Quant mIU/mL Serum , Qual Positive H (Negative) 10/09/19 Range/Units 20:30 WBC (4.5-11.0) X10^3/uL RBC (4.0-5.2) X10^6/uL Hgb (12.0-16.0) g/dL Hct (36-46) % MCV (80-100) fL MCH (26-34) PG MCHC (30-36) % RDW (11.6-14.8) % Plt Count (150-400) X10^3/uL Neut % (Auto) (50-75) % Lymph % (Auto) (25-40) % Butts % (Auto) (3-14) % Eos % (Auto) (2-4) % Baso % (Auto) (0-2) % Neut # (Auto) (3498-9402) /uL Lymph # (Auto) (9146-9016) /uL Butts # (Auto) (0-900) /uL Eos # (Auto) (0-450) /uL Baso # (Auto) (0-100) /uL Sodium (137-145) mmol/L Potassium (3.4-5.1) mmol/L Chloride (98-107) mmol/L Carbon Dioxide (22-32) mmol/L BUN (7-17) mg/dL Creatinine (0.52-1.04) mg/dL Estimated GFR (>60) mL/min BUN/Creatinine Ratio (6-22) Glucose (70-100) mg/dL Calcium (8.4-10.2) mg/dL Total Bilirubin (0.2-1.3) mg/dL AST (14-36) IU/L ALT (<35) IU/L Alkaline Phosphatase (38-126) U/L Total Protein (6.3-8.2) g/dL Albumin (3.5-5.0) g/dL Globulin (1.7-4.1) g/dL Albumin/Globulin Ratio (1.0-2.8) HCG, Quant 19259 mIU/mL Serum , Qual (Negative) [facility] Narrative Medical decision making narrative: 24-year-old at 9 weeks by a 7 week ultrasound presents with vaginal bleeding and cramping. Ultrasound in the emergency department suggests missed AB. Will ask her to repeat quantitative hCG on Sunday if she has not progressed to an obvious miscarriage over the weekend. Prepack of Percocet is given to help with severe cramping. Reviewed signs and symptoms of heavy bleeding and reasons to return to the emergency department Discharge Plan Departure Patient Disposition: Home Clinical Impression: , spontaneous threatened Instructions: DI for Miscarriage Activity Restrictions/Additional Instructions: Thank you for coming in today I am concerned that this may end up being a miscarriage, however we need more time to figure that out. Your hormone level was 35,554 which is still in a reasonably expected range for an approximate 9 week . If you go on to have significant bleeding and passing more clots than this very likely is a miscarriage that is completing itself. If you continue to have just spotting with the bleeding stops completely I would recommend that you have a repeated hormone level on Sunday to give us a better idea of the viability of this current . If you began having severe bleeding as you did with your miscarriage 3 months ago, please return to the emergency department and I am happy to take care of you. Using 400 mg of ibuprofen (2 [id number] pills) and 1 Tylenol every 6 hours can be very helpful in controlling pain. For severe pain rather than a Tylenol you can take to ibuprofen and 1 Percocet. I wish you the best Prescriptions: No Action hydrocodone-acetaminophen 5-325 mg tablet 1 tab PO Q4-6H PRN (Reason: pain) Qty: 10 RF: 0
[2019-10-09 20:37] LABS: Add Manual Diff / Slide Review NO; Basophils Absolute Auto 100 /uL (0-100); Eosinophils Absolute Auto 200 /uL (0-450); Eosinophils Percent Auto 2.6 % (2-4); Hematocrit 36.3 % (36-46); Hemoglobin 12.6 g/dL (12.0-16.0); Lymphocytes Absolute Auto 2300 /uL (1100-4500); Lymphocytes Percent Auto 31.1 % (25-40); Mean Corpuscular HGB Conc 34.8 % (30-36); Mean Corpuscular Hemoglobin 29.7 PG (26-34); Mean Corpuscular Volume 85.4 fL (80-100); Monocytes Absolute Auto 500 /uL (0-900); Monocytes Percent Auto 6.3 % (3-14); Neutrophils Absolute Auto 4300 /uL (1500-7000); Platelet Count 277 X10^3/uL (150-400); Red Blood Cell Count 4.25 X10^6/uL (4.0-5.2); White Blood Cell Count 7.3 X10^3/uL (4.5-11.0)
[2019-10-09] MEDS: KETOROLAC 60 MG/2 ML VIAL 15 MG IV (20:41)
[2019-10-09] MEDS: SODIUM CHLORIDE 0.9% 1,000 ML 1000 ML IV (20:42)
[2019-10-09 20:49] LABS: Alanine Aminotransferase 16 IU/L (<35); Albumin 4.3 g/dL (3.5-5.0); Albumin Globulin Ratio 1.4 (1.0-2.8); Alkaline Phosphatase 55 U/L (38-126); Aspartate Aminotransferase 25 IU/L (14-36); BUN Creatinine Ratio 27.8 (6-22); Bilirubin Total 0.2 mg/dL (0.2-1.3); Blood Urea Nitrogen 20 mg/dL (7-17); Calcium 9.6 mg/dL (8.4-10.2); Carbon Dioxide 23 mmol/L (22-32); Chloride 106 mmol/L (98-107); Estimated Glomerular Filt Rate > 60.0 mL/min (>60); Glucose 98 mg/dL (70-100); HEMOLYSIS < 15 (0-50); Potassium 4.1 mmol/L (3.4-5.1); Sodium 136 mmol/L (137-145); Total Protein 7.3 g/dL (6.3-8.2)
[2019-10-09 20:52] LABS: Pregnancy Test Serum,Qual Positive (Negative)
[2019-10-09] MEDS: OXYCODONE/ACETAMINOPHEN 5/325 TABLET 1 TAB PO (21:49)
[2019-10-09] MEDS: OXYCODONE/APAP 5/325 PREPACK 1 BOTTLE MISC (21:49)
[2019-10-09 22:11] LABS: HCG Quantitative /Beta subunit 35554 mIU/mL
[2019-10-09 22:58] VITALS: BP 115/65; PULSE 75; RESP 15; O2SAT 98
== END 2019-10-09 23:01 | disposition home or self-care (01) ==
PROVIDERS: Emergency Provider Emergency Medicine
DX: O20.0 Threatened abortion (principal); Z3A.09 9 weeks gestation of pregnancy
CPT/HCPCS: 36415; 80053; 84702; 84703; 85025; 96361; 96374; 99284; J1885

== ENCOUNTER 2019-10-11 19:21 | Observation (INO) | payer OTHER, SELFPAY ==
--- NOTE | 2019-10-11 | PATH_ITS ---
[facility] Accession Number: [id number] . 01 Material submitted: . product of conception - UTERINE CONTENTS . 01 Clinical history: . MISCARRIAGE . 02 Diagnosis: Uterine Contents: Chorionic villi present. No evidence of neoplasm. [facility] 10/15/2019 1242 Local . 02 Electronically signed: . Carlos Birmingham MD, PhD, Pathologist NPI- [id number] . 01 Gross description: . UTERINE CONTENTS: Received in formalin are multiple fragments of hemorrhagic spongy tissue measuring 6.0 x 4.0 x 1.0 cm in aggregate. parts are not identified. [employer] sections are submitted in 2 cassettes. /[facility] 10/13/20192055 Local . 02 Pathologist provided ICD-10: O02.1 . 02 CPT . 730969 Performed at: 01 [facility] [address] [id number] MD Meir Young MD Phone: [phone] Performed at: 02 [facility] [address] [place], [place] [id number] MD Jessica Farooq MD Phone: [phone]
[2019-10-11 19:31] VITALS: BP 111/61; PULSE 88; RESP 16; TEMP 36.7; O2SAT 97; BMI 22.1
--- NOTE | 2019-10-11 19:33 | ED.FEMALEGU ---
HPI - Female Genitourinary General Chief complaint: OB/Uterine Contractions Stated complaint: Miscarriage Time Seen by Provider: 10/11/19 19:25 Source: patient and family Mode of arrival: Ambulatory Limitations: no limitations History of Present Illness HPI Narrative: 24F nonsmoker with noncontributory medical history is a at 9 weeks with worsening vaginal bleeding and cramping. She was seen 2 days ago and thought to have an incomplete miscarriage and encouraged to return for worsening symptoms. Patient is bleeding through upwards of 6 pads per hour and has worsening lower cramping. She has the passage of blood clots and some bright red blood. She is not dizzy nor weak or lightheaded. She states she did have an ultrasound few nights ago and that she is O positive. She denies fever chills. She last ate 3 hours ago Related Data Previous Rx's Medication Instructions Recorded hydrocodone-acetaminophen 1 tab PO Q4-6H PRN #10 tab 07/12/19 Allergies Allergy/AdvReac Type Severity Reaction Status Date / Time No Known Drug Allergies Allergy Verified 10/11/19 19:31 Review of Systems Constitutional Constitutional: Denies chills, Denies fatigue, Denies fever(s), Denies frequent falls, Denies lethargy and Denies weakness Eyes Eyes: Denies change in vision, Denies eye discharge, Denies irritation and Denies loss of vision ENT Ears, Nose, Mouth, and Throat: Denies change in voice, Denies dizziness, Denies neck pain, Denies sore throat and Denies throat swelling Cardiovascular Cardiovascular: Denies chest pain, Denies irregular heart rhythm, Denies lightheadedness, Denies palpitations, Denies dyspnea, Denies dyspnea on exertion and Denies orthopnea Respiratory Respiratory: Denies cough, Denies dyspnea, Denies dyspnea on exertion and Denies wheezing Gastrointestinal Gastrointestinal: Denies abdominal pain, Denies change in bowel habits, Denies diarrhea, Denies nausea and Denies vomiting Genitourinary Genitourinary: Reports abnormal vaginal bleeding, Denies hematuria, Reports pelvic pain, Denies flank pain, Denies urinary incontinence and Denies urinary urgency Musculoskeletal Musculoskeletal: Denies back pain, Denies muscle weakness, Denies neck pain, Denies numbness and Denies tingling Integumentary/Breasts Skin/Breast: Denies pruritus, Denies erythema, Denies rash and Denies wounds Neurologic Neurologic: Denies behavioral changes, Denies confusion, Denies dizziness, Denies frequent falls, Denies loss of vision, Denies numbness, Denies tingling and Denies weakness Psychiatric Psychiatric: Denies anxiety, Denies behavioral changes, Denies confusion, Denies depression, Denies homicidal ideation and Denies suicidal ideation Endocrine Endocrine: Denies fatigue, Denies flushing and Denies palpitations Hematologic/Lymphatic Hematologic/Lymphatic: Denies easy bruising Allergic/Immunologic Allergic/Immunologic: Denies urticaria, Denies throat swelling and Denies wheezing Patient History Medical History Incomplete miscarriage (Acute) Surgical History [place] teeth removed (Acute) alcohol intake frequency: holidays/special occasions only Substance Use Type: does not use Exam Narrative Exam Narrative: GENERAL: [24] year old patient appears stated age. Well-nourished, well-developed patient, in moderate distress, tearful, pacing, rubbing her lower belly HEAD: Atraumatic. Normocephalic. EYES: Pupils equal round and reactive. Extraocular motions intact. No scleral icterus. No injection or drainage. ENT: Nose without bleeding, purulent drainage. Throat without erythema, tonsillar hypertrophy or exudate. Airway patent. NECK: Trachea midline. Non tender CARDIOVASCULAR: Regular rate and rhythm without murmurs, gallops, or rubs. RESPIRATORY: Clear to auscultation. Breath sounds equal bilaterally. No wheezes, rales, or rhonchi. GASTROINTESTINAL: Abdomen soft, non-tender, nondistended. EXTREMITIES: No edema or joint tenderness. BACK: Nontender without deformity or crepitance. No flank tenderness. NEURO: AOx3. SKIN: No rash or erythema of visible areas Initial Vital Signs Initial Vital Signs: Vital Signs Temperature 98.1 F 10/11/19 19:31 Pulse Rate 88 10/11/19 19:31 Respiratory Rate 16 10/11/19 19:31 Blood Pressure 111/61 10/11/19 19:31 Pulse Oximetry 97 10/11/19 19:31 Course Course Course Narrative: at 9 weeks by dates with worsening pain and bleeding. US notes demise. OB (Foist) to take for D/C Orders Ordered: ED Orders 10/11/19 19:35 US OB <= 14 weeks fetus Stat 10/11/19 19:52 ABO RH Type Stat Complete Blood Count AUTO DIFF Stat Comprehensive Metabolic Panel Stat HCG Quantitative /Beta subunit Stat Fentanyl (Sublimaze) 0 mcg IV Q5M PRN PRN Reason: Pain, Moderate (4-6) Lactated Ringer's (Lactated Ringers) 1,000 mls @ 42 mls/hr IV CONT LIZ Metoclopramide HCl (Reglan) 10 mg IV NOW PRN PRN Reason: Nausea And Vomiting Ondansetron HCl (Zofran) 4 mg IV NOW PRN PRN Reason: Nausea And Vomiting Discontinued Medications Hydromorphone HCl (Dilaudid) 0.5 mg IV NOW ONE Stop: 10/11/19 20:03 Last Admin: 10/11/19 20:07 Dose: 0.5 mg Documented by: SHAGGY Lorazepam (Ativan) 0.5 mg IV NOW ONE Stop: 10/11/19 21:32 Last Admin: 10/11/19 21:40 Dose: 0.5 mg Documented by: JEANETTE Ondansetron HCl (Zofran) 4 mg IV NOW ONE Stop: 10/11/19 20:03 Last Admin: 10/11/19 20:07 Dose: 4 mg Documented by: SHAGGY Vital Signs Vital signs: Vital Signs - 8 hr 10/11/19 19:31 10/11/19 21:53 Temperature 98.1 F Pulse Rate 88 57 L Respiratory Rate 16 20 Blood Pressure 111/61 Blood Pressure [Left Arm] 106/49 L Pulse Oximetry 97 100 MDM - Female Genitourinary Lab Data Result diagrams: 10/11/19 19:52 10/11/19 19:52 Labs: Lab Results 10/11/19 10/11/19 10/11/19 Range/Units 19:52 19:52 19:52 WBC 8.2 (4.5-11.0) X10^3/uL RBC 4.37 (4.0-5.2) X10^6/uL Hgb 13.1 (12.0-16.0) g/dL Hct 37.3 (36-46) % MCV 85.4 (80-100) fL MCH 30.1 (26-34) PG MCHC 35.2 (30-36) % RDW 12.0 (11.6-14.8) % Plt Count 287 (150-400) X10^3/uL Neut % (Auto) 66.4 (50-75) % Lymph % (Auto) 24.9 L (25-40) % [place] % (Auto) 5.7 (3-14) % Eos % (Auto) 2.0 (2-4) % Baso % (Auto) 1.0 (0-2) % Neut # (Auto) 5500 (1066-8338) /uL Lymph # (Auto) 2100 (7154-2962) /uL [place] # (Auto) 500 (0-900) /uL Eos # (Auto) 200 (0-450) /uL Baso # (Auto) 100 (0-100) /uL Sodium 137 (137-145) mmol/L Potassium 3.7 (3.4-5.1) mmol/L Chloride 107 (98-107) mmol/L Carbon Dioxide 20 L (22-32) mmol/L BUN 12 (7-17) mg/dL Creatinine 0.54 (0.52-1.04) mg/dL Estimated GFR > 60.0 (>60) mL/min BUN/Creatinine Ratio 22.2 H (6-22) Glucose 108 H (70-100) mg/dL Calcium 9.6 (8.4-10.2) mg/dL Total Bilirubin 0.3 (0.2-1.3) mg/dL AST 25 (14-36) IU/L ALT 16 (<35) IU/L Alkaline Phosphatase 63 (38-126) U/L Total Protein 7.7 (6.3-8.2) g/dL Albumin 4.5 (3.5-5.0) g/dL Globulin 3.2 (1.7-4.1) g/dL Albumin/Globulin Ratio 1.4 (1.0-2.8) HCG, Quant 59144 mIU/mL Blood Type O Positive Imaging Data US - OB: Radiologist's Impression: 31 Landen Sheppard DO Find Patient Imaging - Juana Quesada 24 F 1995 ACTIVITY DATE EXAM STATUS AUTHOR 10/11/19 19:[address] [address] Ultrasound Report Signed Patient: Juana Quesada EMR#: [id number] : 1995Acct:[id number] Age/Sex: 24 / FDate of Service: 10/11/19 Loc: ED Accession Number: [id number] Procedure: US OB <= 14 weeks fetus Ordering Provider: Landen Sheppard D.O. PROCEDURE: US OB <= 14 WEEKS FETUS INDICATIONS: PELVIC PAIN,BLEEDING,MISCARRIAGE TECHNIQUE: Real-time scanning was performed of the fetus and maternal pelvic organs, with image documentation. Endovaginal scanning was also performed to better visualize the fetus and maternal ovaries. COMPARISON: [facility], OB <= 14 WEEKS FETUS, 07/12/2019, 7:01. [facility], OB <= 14 WEEKS FETUS, 07/10/2019, 15:43. FINDINGS: Embryo: [place]-rump length 1.4 cm, correlating with a gestational age of 7 weeks 5 days. No cardiac activity was observed. [place]-rump length is 1.4 cm. Measurement variability in dating: +/- 4 weeks by LMP, +/- 7 days by mean sac diameter (use before 6 weeks gestation if crown-rump length not able to be measured), +/- 5 days by crown-rump length (up to 8 weeks 6 days gestation), +/- 7 days by crown-rump length (up to 13 weeks 6 days gestation). Maternal organs: Ovaries normal considering gestational status. Limited images through the kidneys demonstrate no hydronephrosis. IMPRESSION: demise, 7 week 5 day gestational age by crown-rump length. cardiac activity was not identifiable over extended scanning. Dictated by: Mk De La Cruz M.D. on 10/11/2019 at 21:21 Approved by: Mk De La Cruz M.D. on 10/11/2019 at 21:24 Discharge Plan Departure Patient Disposition: Swing Bed/CAH SB Clinical Impression: Incomplete miscarriage Prescriptions: No Action hydrocodone-acetaminophen 5-325 mg tablet 1 tab PO Q4-6H PRN (Reason: pain) Qty: 10 RF: 0
[2019-10-11] MEDS: ONDANSETRON 4 MG/2 ML INJ IV (20:07)
[2019-10-11] MEDS: HYDROMORPHONE 0.5 MG INJ IV (20:07)
[2019-10-11 20:09] LABS: Add Manual Diff / Slide Review NO; Basophils Absolute Auto 100 /uL (0-100); Eosinophils Absolute Auto 200 /uL (0-450); Hematocrit 37.3 % (36-46); Hemoglobin 13.1 g/dL (12.0-16.0); Lymphocytes Absolute Auto 2100 /uL (1100-4500); Lymphocytes Percent Auto 24.9 % (25-40); Mean Corpuscular HGB Conc 35.2 % (30-36); Mean Corpuscular Hemoglobin 30.1 PG (26-34); Mean Corpuscular Volume 85.4 fL (80-100); Monocytes Absolute Auto 500 /uL (0-900); Monocytes Percent Auto 5.7 % (3-14); Neutrophils Absolute Auto 5500 /uL (1500-7000); Neutrophils Percent Auto 66.4 % (50-75); Platelet Count 287 X10^3/uL (150-400); Red Blood Cell Count 4.37 X10^6/uL (4.0-5.2); White Blood Cell Count 8.2 X10^3/uL (4.5-11.0)
[2019-10-11 20:19] LABS: Alanine Aminotransferase 16 IU/L (<35); Albumin 4.5 g/dL (3.5-5.0); Albumin Globulin Ratio 1.4 (1.0-2.8); Alkaline Phosphatase 63 U/L (38-126); Aspartate Aminotransferase 25 IU/L (14-36); BUN Creatinine Ratio 22.2 (6-22); Bilirubin Total 0.3 mg/dL (0.2-1.3); Blood Urea Nitrogen 12 mg/dL (7-17); Calcium 9.6 mg/dL (8.4-10.2); Carbon Dioxide 20 mmol/L (22-32); Chloride 107 mmol/L (98-107); Estimated Glomerular Filt Rate > 60.0 mL/min (>60); Globulin 3.2 g/dL (1.7-4.1); Glucose 108 mg/dL (70-100); HEMOLYSIS 19 (0-50); Potassium 3.7 mmol/L (3.4-5.1); Sodium 137 mmol/L (137-145); Total Protein 7.7 g/dL (6.3-8.2)
[2019-10-11 21:00] LABS: HCG Quantitative /Beta subunit 28890 mIU/mL
[2019-10-11] MEDS: LORazepam 2 MG/ML INJ 0.5 MG IV (21:40)
[2019-10-11 21:53] VITALS: BP 106/49; PULSE 57; RESP 20; O2SAT 100
[2019-10-11 22:30] VITALS: BP 108/55; PULSE 67; RESP 16; O2SAT 100
--- NOTE | 2019-10-11 22:48 | SUR.OPER ---
Lithotomy on padded OR bed, head on pillow, arms secured on padded arm boards at <90 degrees abduction. Legs secured in padded yellow fins stirrups.
--- NOTE | 2019-10-11 22:52 | PM.GYNHP.1 ---
History of Present Illness History of Present Illness Reason for admission: incomplete Narrative: Juana Quesada is a 24 year old female with incomplete miscarriage requesting D&C [facility] Medical History Incomplete miscarriage (Acute) Surgical History [place] teeth removed (Acute) Social History Smoking Status: Unknown if ever smoked Meds Home Medications and Allergies Allergies Allergy/AdvReac Type Severity Reaction Status Date / Time No Known Drug Allergies Allergy Verified 10/11/19 19:31 Review of Systems Review of Systems Narrative: Patient was having normal symptoms but then began having severe abdominal cramping and increasing vaginal bleeding. She had been seen in the emergency room 2 nights ago with no heartbeat seen on ultrasound. She was trying to have a miscarriage at home but the cramping and bleeding became too severe. Patient did have a D and C in June for a incomplete miscarriage. She denies fevers. No headaches. No shortness of breasts are chest pains. ROS: Yes All systems reviewed with the patient and are negative except as otherwise documented Exam Vital Signs (past 8 hours): - 10/11/19 19:31 10/11/19 21:53 10/11/19 22:30 Temperature 98.1 F Pulse Rate 88 57 L 67 Respiratory Rate 16 20 16 Blood Pressure 111/61 Blood Pressure [Left Arm] 106/49 L 108/55 L Pulse Oximetry 97 100 100 Oxygen Delivery Method Room Air Narrative Exam Narrative: HEENT exam within normal limits. Lungs are clear to auscultation percussion. Heart is regular rate and rhythm no S3-S4 or murmurs. Abdomen is soft, with minimal lower abdominal tenderness no rebound. Patient has having moderate vaginal bleeding. Pelvic exam was not performed. Extremities without edema and nontender. Objective Imaging US - abdomen: My impression: 7 week intrauterine gestation with no cardiac activity Labs Result Diagrams: 10/11/19 19:52 10/11/19 19:52 Labs: Laboratory Results - last 24 hr 10/11/19 10/11/19 10/11/19 19:52 19:52 19:52 WBC 8.2 RBC 4.37 Hgb 13.1 Hct 37.3 MCV 85.4 MCH 30.1 MCHC 35.2 RDW 12.0 Plt Count 287 Neut % (Auto) 66.4 Lymph % (Auto) 24.9 L [place] % (Auto) 5.7 Eos % (Auto) 2.0 Baso % (Auto) 1.0 Neut # (Auto) 5500 Lymph # (Auto) 2100 [place] # (Auto) 500 Eos # (Auto) 200 Baso # (Auto) 100 Sodium 137 Potassium 3.7 Chloride 107 Carbon Dioxide 20 L BUN 12 Creatinine 0.54 Estimated GFR > 60.0 BUN/Creatinine Ratio 22.2 H Glucose 108 H Calcium 9.6 Total Bilirubin 0.3 AST 25 ALT 16 Alkaline Phosphatase 63 Total Protein 7.7 Albumin 4.5 Globulin 3.2 Albumin/Globulin Ratio 1.4 HCG, Quant 46306 Blood Type O Positive Assessment & Plan Assessment and plan (1) Incomplete miscarriage: Problem details: 06/2019 Current visit: Yes Status: Acute Assessment & Plan narrative: Patient with incomplete miscarriage with cramping and bleeding significant enough to request D&C. Patient had a D&C for miscarriage in June of this year. COVID-19 COVID-19 status: Result pending Time Spent With Patient Time with patient: 15-24 minutes
--- NOTE | 2019-10-11 22:56 | PM.PREOP ---
Pre-operative Note COVID-19 COVID-19 status: Result pending Interval Note History & Physical reviewed/Exam performed by Physician: Yes Changes to H&P: No
[2019-10-11 23:10] LABS: COVID19 -Nasal RAPID Negative (Negative)
[2019-10-11] MEDS: LACTATED RINGERS 1,000 ML 42 ML IV (23:20)
[2019-10-11] MEDS: CEFAZOLIN 2 GM/100 ML FROZ.PIGGY IV (23:30)
[2019-10-11 23:31] VITALS: BP 103/58; PULSE 87; RESP 19; O2SAT 97
--- NOTE | 2019-10-11 23:50 | PM.OP.1 ---
Operative Date/Time/Diagnoses Date of procedure: 10/11/19 Time of procedure: 23:50 Pre-op diagnosis: Incomplete miscarriage Post-op diagnosis: same Procedure & Clinicians Procedure: Suction D&C Same procedure as scheduled: Yes Indications: Incomplete miscarriage with heavy bleeding and cramping Surgeon: Padma Gonzalez Click Yes if Unassisted: Yes Anesthesia Type: General Operative Notes Findings: Normal exam under anesthesia with 8 week size uterus and moderate amount of retained products of conception Closure Type: not applicable Specimen(s): other (Uterine contents) Estimated Blood Loss (mL): 100 Blood products transfused: none Procedure in detail: Patient was brought to the operating room where she underwent general anesthesia. She was placed in low Yellofin stirrups and prepped and draped in the usual sterile fashion. 2 g of Ancef were in prior to beginning of the case. Warming was with blankets. The bladder was drained with an in-and out catheter. Due to the short nature of the procedure pulsatile stockings were not used. A check system was reviewed with the staff in the room prior to beginning the case. A single-tooth tenaculum was placed on the anterior lip of the cervix and the cervix was found to be dilated to a #10 Hegar dilator. The uterus was sounded. A #7 suction curette was placed in the uterus and tissue removed with the suction curette. Sharp curettage was performed to make sure that all the tissue was removed and the suction curette replaced to finish of the procedure. The patient went to recovery room good condition. Counts of instruments and sponges were correct. Complications: none Post-operative Condition: stable Disposition: same day surgery Plan for aftercare: Home when awake and stable
[2019-10-11 23:58] VITALS: BP 113/49; PULSE 73; RESP 17; TEMP 36.7; O2SAT 100
[2019-10-12 00:03] VITALS: BP 105/59; PULSE 88; RESP 14; O2SAT 100
[2019-10-12] MEDS: fentaNYL 100 MCG/2 ML INJ IV (00:03)
[2019-10-12 00:08] VITALS: BP 100/59; PULSE 82; RESP 14; O2SAT 97
[2019-10-12 00:13] VITALS: BP 99/57; PULSE 76; RESP 10; O2SAT 99
[2019-10-12] MEDS: OXYCODONE/ACETAMINOPHEN 5/325 TABLET 1 TAB PO (00:20)
[2019-10-12 00:23] VITALS: BP 92/61; PULSE 72; RESP 12; O2SAT 99
[2019-10-12 00:27] VITALS: TEMP 36.7
--- NOTE | 2019-10-12 00:28 | SUR.PHASEI ---
Patient declined to have discharge instructions reviewed with her friend/ride.
[2019-10-12 00:37] VITALS: BP 98/57; PULSE 64; RESP 12; O2SAT 100
== END 2019-10-12 00:28 | disposition home or self-care (01) ==
LOC: ED 21:46 → AC 22:49
PROVIDERS: Admitting Provider Specialist; Emergency Provider Emergency Medicine; Referring Provider Emergency Medicine; Visit Provider Specialist
PROC: (CPT 58120; principal; 2019-10-11 23:00)
DX: O03.1 Delayed or excessive hemorrhage following incomplete spontaneous abortion (principal); Z3A.09 9 weeks gestation of pregnancy; Z11.59 Encounter for screening for other viral diseases
CPT/HCPCS: 59812; 36415; 76801; 80053; 84702; 85025; 86900; 86901; 87635; 96374; 96375; 99284; G0378; J0690; J1170; J1885; J2060; J2405; J2704; J3010

== ENCOUNTER 2020-06-06 13:23 | Emergency (ER) | payer OTHER, SELFPAY ==
[2020-06-06 13:30] VITALS: BP 126/59; PULSE 91; RESP 18; TEMP 36.6; O2SAT 100; BMI 22.4
--- NOTE | 2020-06-06 14:44 | ED_ITS ---
HPI - Female Genitourinary General Chief complaint: Urogenital-Female Stated complaint: cramping, 9 days late, neg preg test, nausea Time Seen by Provider: 06/06/20 14:40 Source: patient and old records reviewed Mode of arrival: Ambulatory Limitations: no limitations History of Present Illness HPI Narrative: This is a 25-year-old female comes emergency department with complaint of cramping which she states feels like it is in both her ovaries. She is 9 days late for her menses. Her last period was April 27, 2020. She states she is normally regular. She has taken multiple tests which have been negative. She has had several over the last few days. She states she has also been quite nauseated. No fevers, no chills, no cold, cough, congestion. She denies any chest pain or shortness of breath. She has been nauseated she has not had a lot active emesis unless she tries to eat anything other than bread. She denies abdominal she describes as some cramping in the lower abdominal area both sides. She describes it as ?ovaries cramping on both sides?, she has not had any frequency, dysuria, urgency or hesitancy, she has not had any vaginal, vaginal discharge. She has not any medications regularly. She has had 2 D and C's in the last year. Related Data Previous Rx's Medication Instructions Recorded oxycodone-acetaminophen [Percocet] 2 tab PO Q4-6H PRN #30 tab 10/11/19 Allergies Allergy/AdvReac Type Severity Reaction Status Date / Time No Known Drug Allergies Allergy Verified 10/11/19 19:31 Review of Systems Review of Systems ROS Unobtainable: All systems reviewed & are unremarkable except as noted in HPI and below Patient History Medical History (Updated 06/06/20 @ 16:31 by Lety Gomez DO) Incomplete miscarriage Surgical History [place] teeth removed alcohol intake frequency: holidays/special occasions only Substance Use Type: does not use Exam Narrative Exam Narrative: GENERAL: Alert and oriented x three, well-nourished, well- appearing female in mild distress. HEENT: Head normocephalic, atraumatic, EOMI, pupils reactive, face symmetric, moist mucous membranes NECK: Supple, full range of motion CARDIOVASCULAR: Regular rate and rhythm without murmurs, rubs or gallops. RESPIRATORY: Breath sounds equal bilaterally, no wheezes rales or rhonchi. ABDOMEN: Soft, nontender. Normoactive bowel sounds all 4 quadrants. No guarding or rebound, rigidity, no mass : No CVA tenderness EXTREMITIES: Normal range of motion, no clubbing or edema. Neurovascularly intact NEUROLOGICAL: Cranial nerves II through XII grossly intact. Moving all extremities SKIN: Warm, dry, no petechiae, no rashes or lesions. Initial Vital Signs Initial Vital Signs: Vital Signs Temperature 97.9 F 06/06/20 13:30 Pulse Rate 91 H 06/06/20 13:30 Respiratory Rate 18 06/06/20 13:30 Blood Pressure 126/59 L 06/06/20 13:30 Pulse Oximetry 100 06/06/20 13:30 Course Orders Ordered: ED Orders 06/06/20 15:15 Complete Blood Count AUTO DIFF Stat Comprehensive Metabolic Panel Stat HCG Quantitative /Beta subunit Stat Lipase Stat Discontinued Medications Ondansetron HCl (Ondansetron 4 Mg Odt) 4 mg SL NOW ONE Stop: 06/06/20 15:02 Last Admin: 06/06/20 15:08 Dose: 4 mg Documented by: DANE Vital Signs Vital signs: Vital Signs - 8 hr 06/06/20 13:30 06/06/20 16:39 Temperature 97.9 F Pulse Rate 91 H 60 Respiratory Rate 18 Blood Pressure 126/59 L 99/56 L Pulse Oximetry 100 100 MDM - Female Genitourinary Lab Data Attestation: I reviewed the patient's lab results. Result diagrams: 06/06/20 15:15 06/06/20 15:15 Labs: Lab Results 06/06/20 06/06/20 06/06/20 Range/Units 15:15 15:15 15:15 WBC 6.4 (4.5-11.0) X10^3/uL RBC 4.45 (4.0-5.2) X10^6/uL Hgb 12.8 (12.0-16.0) g/dL Hct 38.8 (36-46) % MCV 87.3 (80-100) fL MCH 28.8 (26-34) PG MCHC 33.0 (30-36) % RDW 12.7 (11.6-14.8) % Plt Count 311 (150-400) X10^3/uL Neut % (Auto) 65.0 (50-75) % Lymph % (Auto) 26.1 (25-40) % [place] % (Auto) 5.8 (3-14) % Eos % (Auto) 2.1 (2-4) % Baso % (Auto) 1.0 (0-2) % Neut # (Auto) 4100 (8212-3566) /uL Lymph # (Auto) 1700 (4159-9010) /uL [place] # (Auto) 400 (0-900) /uL Eos # (Auto) 100 (0-450) /uL Baso # (Auto) 100 (0-100) /uL Sodium 138 (137-145) mmol/L Potassium 4.2 (3.4-5.1) mmol/L Chloride 107 (98-107) mmol/L Carbon Dioxide 27 (22-32) mmol/L BUN 12 (7-17) mg/dL Creatinine 0.62 (0.52-1.04) mg/dL Estimated GFR > 60.0 (>60) mL/min BUN/Creatinine Ratio 19.4 (6-22) Glucose 84 (70-100) mg/dL Calcium 9.2 (8.4-10.2) mg/dL Total Bilirubin 0.2 (0.2-1.3) mg/dL AST 21 (14-36) IU/L ALT 12 (<35) IU/L Alkaline Phosphatase 64 (38-126) U/L Total Protein 7.1 (6.3-8.2) g/dL Albumin 4.2 (3.5-5.0) g/dL Globulin 2.9 (1.7-4.1) g/dL Albumin/Globulin Ratio 1.4 (1.0-2.8) Lipase 39 (23-300) U/L HCG, Quant < 2.4 mIU/mL Point of Care Testing Test Results Negative Urine Dip Bedside Urine Glucose Negative Bedside Urine Bilirubin - Negative Bedside Urine Ketone - Negative Urine Specific [place] 1.030 Bedside Urine Occult Blood - Negative Bedside Urine pH 6.0 Bedside Urine Protein - Negative Bedside Urine Urobilinogen - Negative Bedside Urine Nitrite - Negative Bedside Urine Leukocytes - Negative Esterase MDM Narrative Medical decision making narrative: 25-year-old female comes in with cramping, several home tests have been negative. She is 9 days late from when she was due for her most recent menstruation. She is concerned about . Based on dates she would be 5 weeks and 4 days. Basic labs show no major abnormalities. HCG is negative at less than 2.4. Patient to follow up if persistent symptoms. Discharge Plan Departure Patient Disposition: Home Clinical Impression: Pelvic cramping Instructions: DI for Pelvic Pain Activity Restrictions/Additional Instructions: Follow-up with your physician if you are continuing to have symptoms. Your HCG level today is negative and your other labs do not show major abnormalities. You may take Zofran 1 tablet every 6 hours as needed for nausea. You may take Tylenol and or ibuprofen as needed for pain. Return to the ER for fevers, persistent vomiting, lightheaded and passed out, new or worsening abdominal pain, black or bloody stools, inability to urinate or other new or concerning symptoms. Prescriptions: No Action oxycodone-acetaminophen [Percocet] 5-325 mg tablet 2 tab PO Q4-6H PRN (Reason: pain) Qty: 30 RF: 0
[2020-06-06] MEDS: ONDANSETRON 4 MG ODT SL (15:08)
[2020-06-06 15:23] LABS: Add Manual Diff / Slide Review NO; Basophils Absolute Auto 100 /uL (0-100); Eosinophils Absolute Auto 100 /uL (0-450); Eosinophils Percent Auto 2.1 % (2-4); Hematocrit 38.8 % (36-46); Hemoglobin 12.8 g/dL (12.0-16.0); Lymphocytes Absolute Auto 1700 /uL (1100-4500); Lymphocytes Percent Auto 26.1 % (25-40); Mean Corpuscular Hemoglobin 28.8 PG (26-34); Mean Corpuscular Volume 87.3 fL (80-100); Monocytes Absolute Auto 400 /uL (0-900); Monocytes Percent Auto 5.8 % (3-14); Neutrophils Absolute Auto 4100 /uL (1500-7000); Platelet Count 311 X10^3/uL (150-400); Red Blood Cell Count 4.45 X10^6/uL (4.0-5.2); Red Cell Distribution Width 12.7 % (11.6-14.8); White Blood Cell Count 6.4 X10^3/uL (4.5-11.0)
[2020-06-06 15:36] LABS: Alanine Aminotransferase 12 IU/L (<35); Albumin 4.2 g/dL (3.5-5.0); Albumin Globulin Ratio 1.4 (1.0-2.8); Alkaline Phosphatase 64 U/L (38-126); Aspartate Aminotransferase 21 IU/L (14-36); BUN Creatinine Ratio 19.4 (6-22); Bilirubin Total 0.2 mg/dL (0.2-1.3); Blood Urea Nitrogen 12 mg/dL (7-17); Calcium 9.2 mg/dL (8.4-10.2); Carbon Dioxide 27 mmol/L (22-32); Chloride 107 mmol/L (98-107); Estimated Glomerular Filt Rate > 60.0 mL/min (>60); Globulin 2.9 g/dL (1.7-4.1); Glucose 84 mg/dL (70-100); HEMOLYSIS < 15 (0-50); Lipase 39 U/L (23-300); Potassium 4.2 mmol/L (3.4-5.1); Sodium 138 mmol/L (137-145); Total Protein 7.1 g/dL (6.3-8.2)
[2020-06-06 16:22] LABS: HCG Quantitative /Beta subunit < 2.4 mIU/mL
[2020-06-06 16:39] VITALS: BP 99/56; PULSE 60; O2SAT 100
== END 2020-06-06 16:59 | disposition home or self-care (01) ==
PROVIDERS: Emergency Provider Emergency Medicine
DX: R10.2 Pelvic and perineal pain (principal); R11.0 Nausea
CPT/HCPCS: 36415; 80053; 81003; 81025; 83690; 84702; 85025; 99283

== ENCOUNTER → 2020-10-13 08:04 | Outpatient (CLI) | payer OTHER, SELFPAY ==
--- NOTE | 2020-10-13 | DI.MRI.S_ITS ---
PROCEDURE: MR LUMBAR SPINE WO CON INDICATIONS: Intervertebral disc disorders with radiculopathy, TECHNIQUE: Noncontrast sagittal T1 spin echo and T2 fast echo, coronal T2, sagittal STIR, axial T1 and T2 fast spin echo through the lumbar spine. COMPARISON: [facility], CR, XR LUMBAR SPINE FLEXION EXTENSION, 05/13/2020, 8:46. FINDINGS: Image quality: Excellent. Alignment and Curvature: Rudimentary ribs at T12 are present. 5 lumbar type vertebral bodies are present by plain film. Mild diffuse leftward curvature of the lumbar spine. Bone Marrow: Marrow is of normal overall signal. No acute vertebral body compression fractures. Spinal Cord: Conus medullaris terminates at the L1-L2 disc space level. Visualized cord demonstrates normal signal and size. Paraspinous Soft Tissues: No paravertebral masses. T12-L1: Normal appearance. L1-L2: Normal appearance. L2-L3: Normal appearance. L3-L4: Normal appearance. L4-L5: Mild facet hypertrophy bilaterally. Mild diffuse disc bulge. No significant canal, or foraminal stenosis. L5-S1: Mild disc height loss and desiccation. Mild facet hypertrophy bilaterally. No significant canal, or foraminal stenosis. IMPRESSION: 1. Minimal lower lumbar degenerative disc and facet disease without significant canal, or foraminal stenosis. No neural impingement. Dictated by: Juliane Huang M.D. on 10/13/2020 at 9:53 Approved by: Juliane Huang M.D. on 10/13/2020 at 10:08
== END ==
PROVIDERS: PCP Family Medicine; Referring Provider Orthopaedic Surgery Orthopaedic Surgery of the Spine; Visit Provider Orthopaedic Surgery Orthopaedic Surgery of the Spine
DX: M51.16 Intervertebral disc disorders with radiculopathy, lumbar region (principal)
CPT/HCPCS: 72148

== ENCOUNTER 2021-06-13 09:18 | Emergency (ER) | payer OTHER, SELFPAY ==
[2021-06-13 09:34] VITALS: BP 127/77; PULSE 79; RESP 18; TEMP 36.2; O2SAT 100; BMI 23.3
--- NOTE | 2021-06-13 09:37 | ED_ITS ---
HPI - Ear Problem General Chief complaint: Ear Stated complaint: nausea, dizzy, disoriented, poss, ear infection Time Seen by Provider: 06/13/21 09:29 Source: patient Mode of arrival: Ambulatory Limitations: no limitations History of Present Illness HPI Narrative: This is a 26-year-old female comes in with complaint of right ear pain for the past 2 days, increasing discomfort, pain radiating outside the ear. Patient states she has not had any drainage. No blood. No warmth, redness or visible swelling that she is appreciated. She states her hearing has been somewhat decreased. She does not use Q-tips, she has not been swimming. She went to the gym and was lifting and got disoriented and felt very dizzy and had to threw up 1 time. She has not had similar symptoms in the past. She did have her booster for coronavirus week and half ago. She states that made her feel under the weather but she has otherwise been improving. She has had some mild nasal congestion. Patient denies any other medical problems besides seasonal allergies. She only takes a antihistamine daily. No known drug allergies. No major surgeries. Related Data Previous Rx's Medication Instructions Recorded oxycodone-acetaminophen 5 mg-325 2 tab PO Q4-6H PRN #30 tab 05/16/20 mg tablet (Percocet) [id number]-[id number] 3.5 4 drp EAR-RIGHT QID #10 ml 06/13/21 mg-10,000 unit/mL-1 % ear drops,susp Allergies Allergy/AdvReac Type Severity Reaction Status Date / Time No Known Drug Allergies Allergy Verified 06/13/21 09:34 Review of Systems Review of Systems ROS Unobtainable: All systems reviewed & are unremarkable except as noted in HPI and below Patient History Medical History (Updated 06/13/21 @ 09:41 by Lety Gomez DO) Incomplete miscarriage Surgical History [place] teeth removed Social History Smoking Status: Never smoker Smoking Status: Never smoker alcohol intake frequency: holidays/special occasions only Substance Use Type: does not use Exam Narrative Exam Narrative: GEN: well nourished, well appearing female, alert and oriented x 3, patient appears to be in mild distress. HEENT: Atraumatic, pupils are equal round reactive to light, extraocular movements are intact, nares are clear, left TM is are clear with no fluid, right TM is difficult to visualize, there is swelling and erythema of the canal, there is no warmth, swelling of the ear, patient does have tenderness over palpation of the tragus. Throat is clear without any exudates, erythema, tonsillar enlargement or uvular deviation HEART: Regular rate and rhythm without murmur, clicks, rubs. LUNGS:Lungs clear to auscultation, no wheezes, rales, crackles, chest moves symmetrically ABD:bowel sounds normal, soft, non-tender, no guarding, rebound, rigidity, no masses noted, no hepatosplenomegaly MSCL:full range of motion, normal gait NEURO:CN 2-12 intact, sensation normal SKIN: No warmth, erythema other skin changes. Initial Vital Signs Initial Vital Signs: Vital Signs Temperature 97.2 F L 06/13/21 09:34 Pulse Rate 79 06/13/21 09:34 Respiratory Rate 18 06/13/21 09:34 Blood Pressure 127/77 06/13/21 09:34 Pulse Oximetry 100 06/13/21 09:34 Course Vital Signs Vital signs: Vital Signs - 8 hr 06/13/21 09:34 Temperature 97.2 F L Pulse Rate 79 Respiratory Rate 18 Blood Pressure 127/77 Pulse Oximetry 100 Medical Decision Making [facility] Narrative Medical decision making narrative: 26-year-old female with otitis externa. Patient symptoms are appropriate. Started on antibiotic drops. Return precautions. Discharge Plan Departure Patient Disposition: Home Clinical Impression: Otitis externa Qualifiers: Chronicity: acute Laterality: right Instructions: DI for Otitis Externa Activity Restrictions/Additional Instructions: Follow-up in the next 3-5 days if you are not starting to have significant improvement in your symptoms. Place 4 drops 4 times daily into the affected ear. I would recommend lying on your left side with your right ear up and staying on your side for at least 10 minutes after you put the drops in. You can take Tylenol up to a 1000 mg every 8 hours and/or ibuprofen up to 800 mg every 8 hours as needed for pain. Avoid using Q-tips or inserting anything in your ear. Prescription sent to [facility] in [place]. Please return for rapidly worsening symptoms, increasing pain, fevers, redness, warmth or swelling of the ear, face or neck, bloody drainage or other new or concerning symptoms. Prescriptions: New wyeahmuz-meewhjyyc-FB 3.5-10,000-1 mg/mL-unit/mL-% drops,suspension 4 drp EAR-RIGHT QID Qty: 10 0RF No Action oxycodone-acetaminophen [Percocet] 5-325 mg tablet 2 tab PO Q4-6H PRN (Reason: pain) Qty: 30 0RF Referrals: Fernanda Staton MD [Primary Care Provider] -
== END 2021-06-13 09:50 | disposition home or self-care (01) ==
PROVIDERS: Emergency Provider Emergency Medicine; PCP Family Medicine
DX: H60.91 Unspecified otitis externa, right ear (principal)
CPT/HCPCS: 99281